=== PATIENT | male | born 1945 | race Caucasian/White ===

== ENCOUNTER 2023-04-24 08:11 | Emergency (ER) | payer OTHER ==
[~2023-04-24] VITALS: Ht 177.8 cm; Wt 77.2 kg
[2023-04-24 09:35] LABS: Urine Bacteria NONE SEEN /hpf (None Seen); Urine Blood 1+ /uL (Negative); Urine Clarity HAZY (Clear); Urine Color Yellow (Yellow); Urine Protein, UAD 1+ (Negative); Urine Specific Gravity 1.018 (1.001-1.035); Urine Urobilinogen Normal (Negative); Urine WBC 5 /hpf (0 - 3); Urine pH 5.5 (5.0-8.0)
[2023-04-24 09:42] VITALS: BP 144/70; PULSE 74; RESP 18; TEMP 98.2; O2SAT 96
[2023-04-24] MEDS ORDERED: NITR-87 PO (09:45)
[2023-04-24] MEDS ORDERED: TAMS-35 PO (09:45)
== END 2023-04-24 10:56 | disposition left against medical advice (07) ==
LOC: ER 08:11
DX: N39.0 Urinary tract infection, site not specified (principal); R33.9 Retention of urine, unspecified; J44.9 Chronic obstructive pulmonary disease, unspecified
CPT/HCPCS: 51702; 81001

== ENCOUNTER 2023-07-10 14:56 | Inpatient (IN) | payer OTHER ==
[~2023-07-10] VITALS: Ht 179.1 cm; Wt 77.7 kg
[~2023-07-10 14:56] MED LIST: NITR-87 PO; TAMS-35 PO
[2023-07-10 15:47] LABS: Basophils # (auto) 0.1 10 ^3/uL (0-0.2); Basophils % (auto) 0.8 % (0.0-2.0); Eosinophils # (auto) 0.1 10 ^3/uL (0-0.8); Hematocrit 36.7 % (41.0-53.0); Hemoglobin 11.8 g/dL (13.5-17.5); Lymphocytes # (auto) 0.8 10 ^3/uL (0.4-5.4); Lymphocytes % (auto) 12.5 % (10.0-50.0); Mean Corpuscular Hemoglobin 29.5 pg (28.0-32.0); Mean Corpuscular Hgb Conc. 32.1 g/dL (32.0-36.0); Mean Corpuscular Volume 92.1 fL (80.0-100.0); Monocytes # (auto) 0.5 10 ^3/uL (0-1.3); Monocytes % (auto) 8.7 % (0.0-12.0); Neutrophils # (auto) 4.7 10 ^3/uL (1.6-8.6); Red Blood Cells 3.98 10^6/uL (4.5-5.90); Red Cell Distribution Width 15.5 % (11.8-14.3); White Blood Cell 6.2 10^3/uL (4.4-10.8)
[2023-07-10 16:07] LABS: Alanine Aminotransferase 20 U/L (7-40); Albumin 4.1 g/dL (3.2-4.8); Alkaline Phosphatase 76 U/L (46-116); Anion Gap 7 (5-15); Aspartate Aminotransferase 24 U/L (13-40); BUN/Creatinine Ratio 14.9 (10.0-20.0); Bilirubin, Total 0.9 mg/dL (0.2-1.0); Blood Urea Nitrogen 18 mg/dL (9-23); Calcium 9.5 mg/dL (8.5-10.1); Carbon Dioxide 32 mmol/L (20-30); Chloride 107 mmol/L (98-107); Glucose 92 mg/dL (74-106); Potassium 3.6 mmol/L (3.5-5.1); Sodium 146 mmol/L (136-145); Total Protein 6.7 g/dL (5.7-8.2)
[2023-07-10] MEDS ORDERED: MORPHINE SULFATE INJ 2 MG/ml SYRG IV PRN ×2 (17:15)
[2023-07-10] MEDS ORDERED: ONDANSETRON HCL 4 MG/2 ML VIAL IV PRN (17:15)
[2023-07-10] MEDS ORDERED: ACETAMINOPHEN 325 MG TAB PO PRN (17:15)
[2023-07-10] MEDS ORDERED: NITROGLYCERIN 0.4 MG SL TAB SL PRN (17:15)
[2023-07-10 18:26] VITALS: PULSE 93; RESP 17; O2SAT 99
[2023-07-10] MEDS: ALBUTEROL SULF 2.5 MG/0.5ML(0.5%) NEB SOLN NEB SCH (18:26)
[2023-07-10] MEDS: IPRATROPIUM BROM 0.5 MG/2.5ML INH SOL NEB SCH (18:26)
[2023-07-10 18:27] LABS: Urine WBC None Seen /hpf (0 - 3)
[2023-07-10 18:35] VITALS: PULSE 81; RESP 16; O2SAT 98
[2023-07-10 18:37] VITALS: PULSE 86; RESP 18; O2SAT 100
[2023-07-10] MEDS: FUROSEMIDE 40 MG/4 ML VIAL IV SCH (18:38)
[2023-07-10 18:48] LABS: Urine Bacteria NONE SEEN /hpf (None Seen); Urine Blood Negative /uL (Negative); Urine Clarity Clear (Clear); Urine Color Yellow (Yellow); Urine Mucus FEW (None Seen); Urine Protein, UAD TRACE (Negative); Urine Specific Gravity 1.021 (1.001-1.035); Urine Urobilinogen Normal (Negative)
[2023-07-10 19:18] VITALS: BP 154/85; PULSE 86; RESP 18; TEMP 97.4; O2SAT 100
[2023-07-10 21:28] VITALS: PULSE 80; RESP 20; O2SAT 96
[2023-07-10 21:38] VITALS: PULSE 77; RESP 21; O2SAT 94
[2023-07-10] MEDS: CARVEDILOL 3.125 MG TAB PO SCH (23:09)
[2023-07-11] VITALS (17 sets, daily range): BP systolic 115–152; BP diastolic 64–70; PULSE 63–83; RESP 16–19; TEMP 98.2–98.4; O2SAT 93–99
[2023-07-11] MEDS: hydrALAZINE HCL 20 MG/ML VL IV PRN (08:16)
[2023-07-11] MEDS: LISINOPRIL 5 MG TAB PO SCH (11:02)
[2023-07-11] MEDS: ENOXAPARIN SOD 40 MG/0.4 ML SYRINGE SC SCH (11:02)
[2023-07-11 11:42] LABS: INR 1.21 (0.9-1.15); Partial Thromboplastin Time 30.5 SEC (24.5-34.5); Prothrombin Time 12.5 sec (9.3-11.8)
[2023-07-11 13:26] LABS: COVID19 ANTIGEN SOFIA FIA NEGATIVE (NEGATIVE)
[2023-07-12] VITALS (17 sets, daily range): BP systolic 128–161; BP diastolic 67–76; PULSE 52–112; RESP 16–20; TEMP 97.8–98.2; O2SAT 92–100
[2023-07-12] MEDS: EMPAGLIFLOZIN 10 MG TAB PO SCH (08:46)
[2023-07-12] MEDS ORDERED: TAMS-35 PO (17:44)
[2023-07-12] MEDS: LACTULOSE 20Gm/30ML SOLN PO PRN (17:50)
[2023-07-12] MEDS ORDERED: LACTULOSE 20Gm/30ML SOLN PO SCH (18:00)
[2023-07-12] MEDS: TAMSULOSIN HYDROCHLORIDE 0.4 MG CAP PO SCH (18:03)
[2023-07-12 18:50] LABS: Urine Bacteria NONE SEEN /hpf (None Seen); Urine Blood Negative /uL (Negative); Urine Clarity Clear (Clear); Urine Color Colorless (Yellow); Urine Protein, UAD Negative (Negative); Urine Specific Gravity 1.012 (1.001-1.035); Urine Urobilinogen Normal (Negative); Urine WBC 1 /hpf (0 - 3)
[2023-07-12] MEDS ORDERED: LEVO50TA7 PO (18:50)
[2023-07-12] MEDS ORDERED: CARV6.2551 PO (18:50)
[2023-07-12] MEDS ORDERED: TERA5CAP42 PO (18:50)
[2023-07-12] MEDS ORDERED: GABA-339 PO (18:50)
[2023-07-12] MEDS ORDERED: LISI10TA34 PO (18:50)
[2023-07-12] MEDS: HYDROcodone-ACET 5/325MG TAB PO PRN (20:25)
[2023-07-12] MEDS: SACUBITRIL-VALSARTAN 24mg/26mg TAB PO SCH (22:36)
[2023-07-12] MEDS: TERAZOSIN HCL 5 MG CAP ONE (22:41)
[2023-07-12] MEDS: TERAZOSIN HCL 5 MG CAP PO ONE (22:42)
[2023-07-13] VITALS (19 sets, daily range): BP systolic 100–132; BP diastolic 56–80; PULSE 65–84; RESP 14–18; TEMP 36.7; O2SAT 92–100
[2023-07-13] MEDS: IPRATROPIUM BROM 0.5 MG/2.5ML INH SOL NEB SCH (06:25)
[2023-07-13] MEDS: ALBUTEROL SULF 2.5 MG/0.5ML(0.5%) NEB SOLN NEB SCH (06:26)
[2023-07-13 06:42] LABS: Anion Gap 9 (5-15); Calcium 8.9 mg/dL (8.7-10.4); Carbon Dioxide 31 mmol/L (20-30); Chloride 101 mmol/L (98-107); Potassium 3.1 mmol/L (3.5-5.1); Sodium 141 mmol/L (136-145)
[2023-07-13 06:48] LABS: BUN/Creatinine Ratio 13.6 (10.0-20.0); Blood Urea Nitrogen 20 mg/dL (9-23); Glucose 91 mg/dL (74-106)
[2023-07-13] MEDS: MAGNESIUM SULFATE 1GM/100ML 100 ML IV SCH (11:00)
[2023-07-13 15:29] LABS: Body Fluid Polymorphonuclear 2 % (0-25); Body Fluid Red Blood Cells 400 CUMM (0-2000); Body Fluid White Blood Cells 400 CUMM (0-200)
[2023-07-13] MEDS ORDERED: FURO1TAB31 PO (15:34)
[2023-07-13] MEDS ORDERED: SACU1TAB PO (15:34)
[2023-07-13] MEDS ORDERED: EMPA1TAB PO (15:34)
[2023-07-13] MEDS ORDERED: CARV6.2551 PO (15:34)
[2023-07-13] MEDS: MAGNESIUM SULFATE 1GM/100ML 100 ML IV ONE (16:13)
[2023-07-13] MEDS ORDERED: TERAZOSIN HCL 5 MG CAP PO SCH (22:00)
[2023-07-16 13:07] LABS: Protein, Body Fluid 3.5 g/dL (.)
== END 2023-07-13 19:12 | disposition home or self-care (01) | DRG 291 ==
LOC: ER 14:56 → TELE 17:14 → TELE-WESTW 07-11 09:30
PROVIDERS: ADMIT Internal Medicine; ATTEND Internal Medicine
PROC: 0W9B3ZZ Drainage of Left Pleural Cavity, Percutaneous Approach (ICD-10-PCS; principal; 2023-07-11)
PROC: BB4BZZZ Ultrasonography of Pleura (ICD-10-PCS; 2023-07-11)
PROC: BB4BZZZ Ultrasonography of Pleura (ICD-10-PCS; 2023-07-13)
PROC: 0W9B3ZZ Drainage of Left Pleural Cavity, Percutaneous Approach (ICD-10-PCS; 2023-07-13)
DX: I11.0 Hypertensive heart disease with heart failure (principal); I50.23 Acute on chronic systolic (congestive) heart failure; J96.21 Acute and chronic respiratory failure with hypoxia; J44.1 Chronic obstructive pulmonary disease with (acute) exacerbation; I31.39 Other pericardial effusion (noninflammatory); J98.11 Atelectasis; J91.8 Pleural effusion in other conditions classified elsewhere; I42.9 Cardiomyopathy, unspecified; E78.5 Hyperlipidemia, unspecified; I25.10 Atherosclerotic heart disease of native coronary artery without angina pectoris; Z20.822 Contact with and (suspected) exposure to COVID-19; Z99.81 Dependence on supplemental oxygen; Z95.810 Presence of automatic (implantable) cardiac defibrillator; Z87.891 Personal history of nicotine dependence; Z98.61 Coronary angioplasty status; Z79.899 Other long term (current) drug therapy
CPT/HCPCS: 36415; 71045; 74176; 76604; 80048; 80053; 81001; 83735; 83880; 83986; 84484; 85025; 85610; 85730; 87205; 87426; 89051; 93005; 93306; 94640; 97116; 97163; 97530; 99291; G0378

== ENCOUNTER 2023-07-18 15:12 | Inpatient (IN) | payer OTHER ==
[~2023-07-18] VITALS: Ht 170.2 cm; Wt 74.8 kg
[~2023-07-18 15:12] MED LIST changes: +CARV6.2551 PO; +EMPA1TAB PO; +FURO1TAB31 PO; +LEVO50TA7 PO; -NITR-87 PO; +SACU1TAB PO; +TERA5CAP42 PO
[2023-07-18 17:55] LABS: Basophils # (auto) 0 10 ^3/uL (0-0.2); Basophils % (auto) 0.6 % (0.0-2.0); Eosinophils # (auto) 0.2 10 ^3/uL (0-0.8); Eosinophils % (auto) 2.4 % (0.0-7.0); Hematocrit 39.9 % (41.0-53.0); Lymphocytes # (auto) 0.7 10 ^3/uL (0.4-5.4); Lymphocytes % (auto) 9.6 % (10.0-50.0); Mean Corpuscular Hemoglobin 29.7 pg (28.0-32.0); Mean Corpuscular Hgb Conc. 32.5 g/dL (32.0-36.0); Mean Corpuscular Volume 91.4 fL (80.0-100.0); Monocytes # (auto) 0.7 10 ^3/uL (0-1.3); Monocytes % (auto) 8.5 % (0.0-12.0); Neutrophils # (auto) 6.1 10 ^3/uL (1.6-8.6); Neutrophils % (auto) 78.9 % (37.0-80.0); Nucleated Red Blood Cells % 0.1 %; Red Blood Cells 4.37 10^6/uL (4.5-5.90); Red Cell Distribution Width 14.8 % (11.8-14.3); White Blood Cell 7.8 10^3/uL (4.4-10.8)
[2023-07-18 18:02] LABS: Alanine Aminotransferase 16 U/L (7-40); Albumin 3.9 g/dL (3.2-4.8); Alkaline Phosphatase 74 U/L (46-116); Anion Gap 4 (5-15); BUN/Creatinine Ratio 17.4 (10.0-20.0); Bilirubin, Total 0.4 mg/dL (0.2-1.0); Blood Urea Nitrogen 32 mg/dL (9-23); Calcium 8.8 mg/dL (8.7-10.4); Carbon Dioxide 35 mmol/L (20-30); Chloride 104 mmol/L (98-107); Glucose 106 mg/dL (74-106); Lipase 51 U/L (12-53); Potassium 3.9 mmol/L (3.5-5.1); Sodium 143 mmol/L (136-145); Total Protein 6.6 g/dL (5.7-8.2)
[2023-07-18 18:17] LABS: Aspartate Aminotransferase 10 U/L (13-40)
[2023-07-18] MEDS ORDERED: ACETAMINOPHEN 325 MG TAB PO PRN (23:00)
[2023-07-18] MEDS ORDERED: ONDANSETRON HCL 4 MG/2 ML VIAL IV PRN (23:00)
[2023-07-19] VITALS (11 sets, daily range): BP systolic 91–150; BP diastolic 55–70; PULSE 65–85; RESP 16–20; TEMP 97.5–98.5; O2SAT 94–97
[2023-07-19] MEDS: SODIUM CHLORIDE 0.9% 1,000 ML IV ONE (02:20)
[2023-07-19] MEDS: ENOXAPARIN SOD 100 MG/1 ML SYRINGE SC ONE (02:25)
[2023-07-19 04:37] LABS: Basophils # (auto) 0.1 10 ^3/uL (0-0.2); Basophils % (auto) 0.8 % (0.0-2.0); Eosinophils # (auto) 0.2 10 ^3/uL (0-0.8); Eosinophils % (auto) 2.9 % (0.0-7.0); Hematocrit 39.2 % (41.0-53.0); Hemoglobin 12.6 g/dL (13.5-17.5); Lymphocytes # (auto) 1.1 10 ^3/uL (0.4-5.4); Lymphocytes % (auto) 15.2 % (10.0-50.0); Mean Corpuscular Hemoglobin 29.5 pg (28.0-32.0); Mean Corpuscular Hgb Conc. 32.2 g/dL (32.0-36.0); Mean Corpuscular Volume 91.7 fL (80.0-100.0); Monocytes # (auto) 0.6 10 ^3/uL (0-1.3); Monocytes % (auto) 8.6 % (0.0-12.0); Neutrophils # (auto) 5.2 10 ^3/uL (1.6-8.6); Neutrophils % (auto) 72.5 % (37.0-80.0); Red Blood Cells 4.27 10^6/uL (4.5-5.90); Red Cell Distribution Width 14.8 % (11.8-14.3); White Blood Cell 7.2 10^3/uL (4.4-10.8)
[2023-07-19 04:46] LABS: Chloride 105 mmol/L (98-107); Potassium 3.8 mmol/L (3.5-5.1); Sodium 143 mmol/L (136-145)
[2023-07-19 04:47] LABS: Anion Gap 7 (5-15); Carbon Dioxide 31 mmol/L (20-30)
[2023-07-19 04:52] LABS: BUN/Creatinine Ratio 15.8 (10.0-20.0); Blood Urea Nitrogen 25 mg/dL (9-23); Glucose 103 mg/dL (74-106)
[2023-07-19] MEDS ORDERED: COLCPOW2 PO (05:43)
[2023-07-19] MEDS: PANTOPRAZOLE 40 MG/10 ML VIAL INJ IV SCH (10:00)
[2023-07-19] MEDS: TERAZOSIN HCL 5 MG CAP PO ONE (13:53)
[2023-07-19] MEDS: TAMSULOSIN HYDROCHLORIDE 0.4 MG CAP PO ONE (13:53)
[2023-07-19] MEDS: SACUBITRIL-VALSARTAN 24mg/26mg TAB PO SCH (18:00)
[2023-07-19] MEDS: FUROSEMIDE 40 MG TAB PO SCH (18:00)
[2023-07-19 18:55] LABS: Urine Bacteria NONE SEEN /hpf (None Seen); Urine Blood Negative /uL (Negative); Urine Clarity Clear (Clear); Urine Color Colorless (Yellow); Urine Protein, UAD Negative (Negative); Urine Specific Gravity 1.015 (1.001-1.035); Urine Urobilinogen Normal (Negative); Urine WBC 1 /hpf (0 - 3); Urine pH 7.5 (5.0-8.0)
[2023-07-19] MEDS: COLCHICINE 0.6 MG CAP PO SCH (22:00)
[2023-07-19] MEDS: CARVEDILOL 3.125 MG TAB PO SCH (22:00)
[2023-07-20] VITALS (7 sets, daily range): BP systolic 99–135; BP diastolic 60–80; PULSE 65–87; RESP 16–22; TEMP 97.8–98.4; O2SAT 93–96
[2023-07-20 00:56] LABS: Potassium 3.7 mmol/L (3.5-5.1)
[2023-07-20] MEDS: LEVOTHYROXINE SODIUM 50 MCG TAB PO SCH (06:12)
[2023-07-20 06:55] LABS: Basophils # (auto) 0.1 10 ^3/uL (0-0.2); Eosinophils # (auto) 0.2 10 ^3/uL (0-0.8); Eosinophils % (auto) 3.7 % (0.0-7.0); Hematocrit 36.9 % (41.0-53.0); Hemoglobin 11.9 g/dL (13.5-17.5); Lymphocytes # (auto) 1.1 10 ^3/uL (0.4-5.4); Lymphocytes % (auto) 16.8 % (10.0-50.0); Mean Corpuscular Hemoglobin 29.4 pg (28.0-32.0); Mean Corpuscular Hgb Conc. 32.3 g/dL (32.0-36.0); Mean Corpuscular Volume 91.1 fL (80.0-100.0); Monocytes # (auto) 0.6 10 ^3/uL (0-1.3); Monocytes % (auto) 8.9 % (0.0-12.0); Neutrophils # (auto) 4.7 10 ^3/uL (1.6-8.6); Neutrophils % (auto) 69.6 % (37.0-80.0); Red Blood Cells 4.06 10^6/uL (4.5-5.90); Red Cell Distribution Width 14.4 % (11.8-14.3); White Blood Cell 6.8 10^3/uL (4.4-10.8)
[2023-07-20 07:06] LABS: Anion Gap 8 (5-15); Carbon Dioxide 29 mmol/L (20-30); Chloride 106 mmol/L (98-107); Potassium 3.6 mmol/L (3.5-5.1); Sodium 143 mmol/L (136-145)
[2023-07-20 07:07] LABS: Calcium 8.9 mg/dL (8.5-10.1)
[2023-07-20 07:12] LABS: BUN/Creatinine Ratio 15.9 (10.0-20.0); Blood Urea Nitrogen 22 mg/dL (9-23); Glucose 92 mg/dL (74-106)
[2023-07-20] MEDS: EMPAGLIFLOZIN 10 MG TAB PO SCH (08:18)
[2023-07-20] MEDS: TERAZOSIN HCL 5 MG CAP PO SCH (09:41)
[2023-07-20] MEDS ORDERED: TAMSULOSIN HYDROCHLORIDE 0.4 MG CAP PO SCH (18:00)
[2023-07-20] MEDS: DOCUSATE SOD 100 MG CAP PO SCH (22:12)
[2023-07-21] VITALS (7 sets, daily range): BP systolic 100–132; BP diastolic 47–94; PULSE 62–80; RESP 16–18; TEMP 36.9; O2SAT 92–96
[2023-07-21 06:54] LABS: Basophils # (auto) 0.1 10 ^3/uL (0-0.2); Eosinophils # (auto) 0.2 10 ^3/uL (0-0.8); Eosinophils % (auto) 3.1 % (0.0-7.0); Hematocrit 36.8 % (41.0-53.0); Hemoglobin 12.2 g/dL (13.5-17.5); Lymphocytes # (auto) 1.2 10 ^3/uL (0.4-5.4); Lymphocytes % (auto) 17.2 % (10.0-50.0); Mean Corpuscular Hgb Conc. 33.1 g/dL (32.0-36.0); Mean Corpuscular Volume 90.8 fL (80.0-100.0); Monocytes # (auto) 0.7 10 ^3/uL (0-1.3); Neutrophils # (auto) 4.6 10 ^3/uL (1.6-8.6); Neutrophils % (auto) 68.7 % (37.0-80.0); Red Blood Cells 4.05 10^6/uL (4.5-5.90); Red Cell Distribution Width 14.4 % (11.8-14.3); White Blood Cell 6.8 10^3/uL (4.4-10.8)
[2023-07-21 07:25] LABS: Chloride 106 mmol/L (98-107); Potassium 3.9 mmol/L (3.5-5.1); Sodium 143 mmol/L (136-145)
[2023-07-21 07:27] LABS: Calcium 8.9 mg/dL (8.5-10.1)
[2023-07-21 07:31] LABS: BUN/Creatinine Ratio 14.4 (10.0-20.0); Blood Urea Nitrogen 22 mg/dL (9-23); Glucose 95 mg/dL (74-106)
[2023-07-21 08:06] LABS: Anion Gap 9 (5-15); Carbon Dioxide 28 mmol/L (20-30)
[2023-07-21] MEDS: TAMSULOSIN HYDROCHLORIDE 0.4 MG CAP PO SCH (09:41)
[2023-07-21] MEDS: FUROSEMIDE 40 MG TAB PO SCH (09:42)
[2023-07-21] MEDS: SACUBITRIL-VALSARTAN 24mg/26mg TAB PO SCH (09:42)
[2023-07-21] MEDS: TERAZOSIN HCL 5 MG CAP PO SCH (10:14)
== END 2023-07-21 17:25 | disposition home or self-care (01) | DRG 917 ==
LOC: EDBD 15:12 → ER 15:12 → OVERFLOW 22:57 → TELE-CENTR 07-19 05:10
PROVIDERS: ADMIT Nurse Practitioner Family; ATTEND Internal Medicine
DX: T44.6X1A Poisoning by alpha-adrenoreceptor antagonists, accidental (unintentional), initial encounter (principal); N17.0 Acute kidney failure with tubular necrosis; J98.11 Atelectasis; I13.0 Hypertensive heart and chronic kidney disease with heart failure and stage 1 through stage 4 chronic kidney disease, or unspecified chronic kidney disease; I50.9 Heart failure, unspecified; E07.9 Disorder of thyroid, unspecified; E03.9 Hypothyroidism, unspecified; J44.9 Chronic obstructive pulmonary disease, unspecified; I95.2 Hypotension due to drugs; C43.9 Malignant melanoma of skin, unspecified; F10.20 Alcohol dependence, uncomplicated; Y90.9 Presence of alcohol in blood, level not specified; N18.9 Chronic kidney disease, unspecified; Z79.899 Other long term (current) drug therapy; Z79.84 Long term (current) use of oral hypoglycemic drugs; Z87.891 Personal history of nicotine dependence; Z85.820 Personal history of malignant melanoma of skin; Z80.8 Family history of malignant neoplasm of other organs or systems; Y92.89 Other specified places as the place of occurrence of the external cause
CPT/HCPCS: 36415; 70450; 71045; 76775; 78582; 80048; 80053; 81001; 83605; 83690; 83735; 83880; 84132; 84484; 85025; 85379; 87081; 93005; 93970; 97110; 97116; 97163; 97530; C9113; G0378

== ENCOUNTER 2023-10-18 14:03 | Inpatient (IN) | payer OTHER ==
[~2023-10-18] VITALS: Ht 177.8 cm; Wt 78.0 kg
[~2023-10-18 14:03] MED LIST changes: +COLCPOW2 PO
[2023-10-18 15:15] VITALS: PULSE 60; RESP 16; O2SAT 96
[2023-10-18 15:59] LABS: Basophils # (auto) 0.1 10 ^3/uL (0-0.2); Eosinophils # (auto) 0.1 10 ^3/uL (0-0.8); Eosinophils % (auto) 2.2 % (0.0-7.0); Hematocrit 34.7 % (41.0-53.0); Hemoglobin 11.4 g/dL (13.5-17.5); Lymphocytes # (auto) 0.9 10 ^3/uL (0.4-5.4); Mean Corpuscular Hemoglobin 29.4 pg (28.0-32.0); Mean Corpuscular Hgb Conc. 32.9 g/dL (32.0-36.0); Mean Corpuscular Volume 89.3 fL (80.0-100.0); Monocytes # (auto) 0.4 10 ^3/uL (0-1.3); Monocytes % (auto) 7.7 % (0.0-12.0); Neutrophils # (auto) 3.8 10 ^3/uL (1.6-8.6); Neutrophils % (auto) 72.1 % (37.0-80.0); Red Blood Cells 3.89 10^6/uL (4.5-5.90); Red Cell Distribution Width 15.9 % (11.8-14.3); White Blood Cell 5.3 10^3/uL (4.4-10.8)
[2023-10-18 16:09] LABS: Albumin 3.6 g/dL (3.2-4.8); Alkaline Phosphatase 67 U/L (46-116); Anion Gap 3 (5-15); Aspartate Aminotransferase < 8 U/L (13-40); BUN/Creatinine Ratio 16.5 (10.0-20.0); Blood Urea Nitrogen 34 mg/dL (9-23); Carbon Dioxide 31 mmol/L (20-30); Chloride 109 mmol/L (98-107); Glucose 99 mg/dL (74-106); Lipase 40 U/L (12-53); Potassium 4.1 mmol/L (3.5-5.1); Sodium 143 mmol/L (136-145)
[2023-10-18 16:10] LABS: Bilirubin, Total 0.4 mg/dL (0.2-1.0); Total Protein 6.4 g/dL (5.7-8.2)
[2023-10-18 16:11] LABS: Alanine Aminotransferase < 9 U/L (7-40)
[2023-10-18] MEDS ORDERED: ONDANSETRON HCL 4 MG/2 ML VIAL IV PRN (19:00)
[2023-10-18] MEDS ORDERED: MORPHINE SULFATE INJ 2 MG/ml SYRG IV PRN (19:00)
[2023-10-18] MEDS ORDERED: NITROGLYCERIN 0.4 MG SL TAB SL PRN (19:00)
[2023-10-18] MEDS: SODIUM CHLORIDE 0.9% 250 ML IV ONE (19:00)
[2023-10-18 19:10] LABS: Urine Bacteria None Seen /hpf (None Seen)
[2023-10-18 19:37] LABS: Urine Blood Negative /uL (Negative); Urine Clarity Clear (Clear); Urine Color Light-Yellow (Yellow); Urine Protein, UAD Negative (Negative); Urine Specific Gravity 1.012 (1.001-1.035); Urine Urobilinogen Normal (Negative); Urine WBC 1 /hpf (0 - 3)
[2023-10-18 19:45] VITALS: PULSE 65; RESP 14; O2SAT 98
[2023-10-18] MEDS: FAMOTIDINE 20 MG TAB PO SCH (22:00)
[2023-10-18] MEDS: CARVEDILOL 3.125 MG TAB PO SCH (22:47)
[2023-10-18 22:55] VITALS: PULSE 90; RESP 17; O2SAT 97
[2023-10-19] VITALS (9 sets, daily range): BP systolic 106–159; BP diastolic 40–106; PULSE 54–75; RESP 14–20; TEMP 97.3–98.3; O2SAT 64–97
[2023-10-19 06:49] LABS: Calcium 9.3 mg/dL (8.5-10.1); Chloride 110 mmol/L (98-107); Potassium 3.8 mmol/L (3.5-5.1); Sodium 145 mmol/L (136-145)
[2023-10-19 06:50] LABS: Anion Gap 4 (5-15); Carbon Dioxide 31 mmol/L (20-30)
[2023-10-19] MEDS: LEVOTHYROXINE SODIUM 50 MCG TAB PO SCH (06:53)
[2023-10-19 06:55] LABS: BUN/Creatinine Ratio 15.3 (10.0-20.0); Blood Urea Nitrogen 28 mg/dL (9-23); Glucose 85 mg/dL (74-106)
[2023-10-19 06:56] LABS: Magnesium 2.3 mg/dL (1.6-2.6)
[2023-10-19 08:39] LABS: Triglycerides 126 mg/dL (< 150)
[2023-10-19 08:40] LABS: LDL Cholesterol 149 mg/dL (< 100)
[2023-10-19 08:41] LABS: Cholesterol 209 mg/dL (< 200); HDL Cholesterol 45 mg/dL (40-59)
[2023-10-19] MEDS: EMPAGLIFLOZIN 10 MG TAB PO SCH (18:35)
[2023-10-19] MEDS: TAMSULOSIN HYDROCHLORIDE 0.4 MG CAP PO SCH (18:35)
[2023-10-19] MEDS: ATORVASTATIN 20 MG TAB PO SCH (22:00)
[2023-10-20] MEDS: MELATONIN 5 MG TAB PO PRN (00:43)
[2023-10-20] MEDS: ACETAMINOPHEN 325 MG TAB PO PRN (00:44)
[2023-10-20 01:00] VITALS: BP 137/64; PULSE 62; RESP 20; TEMP 98.3; O2SAT 95
[2023-10-20 05:00] VITALS: BP 160/70; PULSE 60; RESP 21; TEMP 97.8; O2SAT 97
[2023-10-20] MEDS ORDERED: hydrALAZINE HCL 20 MG/ML VL IV PRN (07:15)
[2023-10-20 08:00] VITALS: BP 161/73; PULSE 60; PULSE 76; RESP 20; TEMP 97.7; O2SAT 97
[2023-10-20] MEDS: FAMOTIDINE 20 MG TAB PO SCH (09:39)
[2023-10-20 12:59] VITALS: BP 138/69; PULSE 64; RESP 20; TEMP 97.7; O2SAT 96
[2023-10-20 15:39] VITALS: BP 138/69; PULSE 64; RESP 18; TEMP 36.5; O2SAT 98
[2023-10-20 15:50] VITALS: BP 138/69; PULSE 64
== END 2023-10-20 16:30 | disposition home or self-care (01) | DRG 312 ==
LOC: ER 14:03 → EDUNIT# 14:03 → EDBD 14:03 → TELE 18:56 → TELE-CENTR 22:18
PROVIDERS: ADMIT Hospitalist; ATTEND Hospitalist
DX: I95.2 Hypotension due to drugs (principal); G93.41 Metabolic encephalopathy; I13.0 Hypertensive heart and chronic kidney disease with heart failure and stage 1 through stage 4 chronic kidney disease, or unspecified chronic kidney disease; N17.9 Acute kidney failure, unspecified; I50.42 Chronic combined systolic (congestive) and diastolic (congestive) heart failure; R55 Syncope and collapse; N18.9 Chronic kidney disease, unspecified; E78.5 Hyperlipidemia, unspecified; N40.0 Benign prostatic hyperplasia without lower urinary tract symptoms; J44.9 Chronic obstructive pulmonary disease, unspecified; I25.10 Atherosclerotic heart disease of native coronary artery without angina pectoris; G62.9 Polyneuropathy, unspecified; Z95.810 Presence of automatic (implantable) cardiac defibrillator; Z95.5 Presence of coronary angioplasty implant and graft; Z80.8 Family history of malignant neoplasm of other organs or systems; T44.6X5A Adverse effect of alpha-adrenoreceptor antagonists, initial encounter; Y92.89 Other specified places as the place of occurrence of the external cause
CPT/HCPCS: 36415; 70450; 71045; 80048; 80053; 80061; 81001; 83036; 83605; 83690; 83735; 83880; 84443; 84484; 85025; 93005; 93306; 93886; 97163; G0378

== ENCOUNTER 2024-03-21 08:57 | Inpatient (IN) | payer OTHER ==
[~2024-03-21] VITALS: Ht 182.9 cm; Wt 77.2 kg
[~2024-03-21 08:57] MED LIST changes: -COLCPOW2 PO; -TERA5CAP42 PO
[2024-03-21 10:00] VITALS: PULSE 65; RESP 16; O2SAT 96
[2024-03-21] MEDS: ASPirin 325 MG TAB PO ONE (10:07)
[2024-03-21] MEDS: ASPirin 325 MG TAB ONE (10:07)
[2024-03-21 10:10] LABS: Alanine Aminotransferase 14 U/L (7-40); Albumin 4.1 g/dL (3.2-4.8); Alkaline Phosphatase 78 U/L (46-116); Anion Gap 6 (5-15); Aspartate Aminotransferase 15 U/L (13-40); Bilirubin, Total 0.5 mg/dL (0.2-1.0); Blood Urea Nitrogen 24 mg/dL (9-23); Calcium 9.4 mg/dL (8.7-10.4); Carbon Dioxide 30 mmol/L (20-31); Chloride 106 mmol/L (98-107); Glucose 94 mg/dL (74-106); Potassium 3.7 mmol/L (3.5-5.1); Sodium 142 mmol/L (136-145)
[2024-03-21 10:20] LABS: Basophils # (auto) 0 10 ^3/uL (0-0.2); Basophils % (auto) 0.9 % (0.0-2.0); Eosinophils # (auto) 0.1 10 ^3/uL (0-0.8); Eosinophils % (auto) 2.4 % (0.0-7.0); Hematocrit 39.1 % (41.0-53.0); Hemoglobin 13.4 g/dL (13.5-17.5); Lymphocytes % (auto) 18.9 % (10.0-50.0); Mean Corpuscular Hemoglobin 31.1 pg (28.0-32.0); Mean Corpuscular Hgb Conc. 34.3 g/dL (32.0-36.0); Mean Corpuscular Volume 90.8 fL (80.0-100.0); Monocytes # (auto) 0.6 10 ^3/uL (0-1.3); Monocytes % (auto) 10.6 % (0.0-12.0); Neutrophils # (auto) 3.6 10 ^3/uL (1.6-8.6); Neutrophils % (auto) 67.2 % (37.0-80.0); Nucleated Red Blood Cells % 0.2 %; Platelet Count (auto) 197 10^3/uL (140-450); Red Blood Cells 4.31 10^6/uL (4.5-5.90); Red Cell Distribution Width 15.1 % (11.8-14.3); White Blood Cell 5.3 10^3/uL (4.4-10.8)
[2024-03-21 10:59] LABS: Urine Bacteria None Seen /hpf (None Seen)
[2024-03-21 11:05] LABS: Urine Blood Negative /uL (Negative); Urine Clarity Clear (Clear); Urine Color Colorless (Yellow); Urine Protein, UAD Negative (Negative); Urine Specific Gravity 1.006 (1.001-1.035); Urine Urobilinogen Normal (Negative); Urine WBC <1 /hpf (0 - 3); Urine pH 6.5 (5.0-9.0)
[2024-03-21] MEDS ORDERED: NITROGLYCERIN 0.4 MG SL TAB SL PRN (14:00)
[2024-03-21] MEDS: ENOXAPARIN SOD 80 MG/0.8ML SYRINGE SC ONE (14:05)
[2024-03-21 15:22] LABS: INR 1.11 (0.9-1.15); Partial Thromboplastin Time 34.3 SEC (24.5-34.5); Prothrombin Time 11.7 sec (9.3-11.8)
[2024-03-21] MEDS: SACUBITRIL-VALSARTAN 24mg/26mg TAB PO SCH (18:00)
[2024-03-21] MEDS: TAMSULOSIN HYDROCHLORIDE 0.4 MG CAP PO SCH (19:00)
[2024-03-21 19:30] VITALS: PULSE 63; RESP 17; O2SAT 96
[2024-03-21] MEDS: AMIODARONE BOLUS KIT 100 ML IV ONE (19:49)
[2024-03-21] MEDS: AMIODARONE 450mg/250ml AE 250 ML IV ONE (19:50)
[2024-03-21] MEDS: AMIODARONE 450mg/250ml AE 250 ML IV SCH (20:00)
[2024-03-21] MEDS: ENOXAPARIN SOD 100 MG/1 ML SYRINGE SC ONE (20:34)
[2024-03-21] MEDS ORDERED: LIDOCAINE 50MG/5ML INJ 5ML SYRINGE IV ONE (21:00)
[2024-03-21] MEDS: LIDOCAINE HCL 100 MG/5ML (2%) SYRG INJ IV ONE (21:12)
[2024-03-21] MEDS: FUROSEMIDE 40 MG TAB PO SCH (22:00)
[2024-03-21] MEDS: AMIODARONE HCL 200 MG TAB PO SCH (22:00)
[2024-03-21] MEDS: CARVEDILOL 3.125 MG TAB PO SCH (22:00)
[2024-03-21 22:19] LABS: COVID19 ANTIGEN SOFIA FIA NEGATIVE (NEGATIVE)
[2024-03-21 22:20] LABS: Rapid Influenza A Negative (Negative); Rapid Influenza B Negative (Negative)
[2024-03-22] VITALS (35 sets, daily range): BP systolic 119–161; BP diastolic 55–90; PULSE 60–72; RESP 9–18; TEMP 97.6–98.9; O2SAT 90–100
[2024-03-22] MEDS: AMIODARONE 450mg/250ml AE 250 ML IV SCH (02:00)
[2024-03-22] MEDS: LEVOTHYROXINE SODIUM 50 MCG TAB PO SCH (07:00)
[2024-03-22 07:38] LABS: Urine Bacteria None Seen /hpf (None Seen)
[2024-03-22 07:52] LABS: Urine Blood Negative /uL (Negative); Urine Clarity Clear (Clear); Urine Color Light-Yellow (Yellow); Urine Hyaline Cast FEW /lpf (0 - 2); Urine Protein, UAD Negative (Negative); Urine Specific Gravity 1.015 (1.001-1.035); Urine Urobilinogen Normal (Negative); Urine WBC 1 /hpf (0 - 3)
[2024-03-22 08:00] LABS: Amphetamine Screen, Urine Neg (NEGATIVE); Benzodiazephine Screen, Urine Neg (NEGATIVE)
[2024-03-22 08:01] LABS: Barbiturate Scree,Urine Neg (NEGATIVE); Cannabinoid Screen, Urine Neg (NEGATIVE); Cocaine Screen, Urine Neg (NEGATIVE); Opiate Scree,Urine Neg (NEGATIVE); Phencyclidine Screen, Urine Neg (NEGATIVE)
[2024-03-22] MEDS: EMPAGLIFLOZIN 10 MG TAB PO SCH (08:42)
[2024-03-22 08:48] LABS: Basophils # (auto) 0 10 ^3/uL (0-0.2); Basophils % (auto) 0.7 % (0.0-2.0); Eosinophils # (auto) 0.1 10 ^3/uL (0-0.8); Eosinophils % (auto) 1.7 % (0.0-7.0); Hematocrit 38.9 % (41.0-53.0); Hemoglobin 13.2 g/dL (13.5-17.5); Lymphocytes # (auto) 0.8 10 ^3/uL (0.4-5.4); Lymphocytes % (auto) 12.8 % (10.0-50.0); Mean Corpuscular Hemoglobin 30.7 pg (28.0-32.0); Mean Corpuscular Hgb Conc. 34.1 g/dL (32.0-36.0); Mean Corpuscular Volume 90.2 fL (80.0-100.0); Monocytes # (auto) 0.6 10 ^3/uL (0-1.3); Monocytes % (auto) 9.2 % (0.0-12.0); Neutrophils # (auto) 4.6 10 ^3/uL (1.6-8.6); Neutrophils % (auto) 75.6 % (37.0-80.0); Platelet Count (auto) 189 10^3/uL (140-450); Red Blood Cells 4.31 10^6/uL (4.5-5.90); White Blood Cell 6.1 10^3/uL (4.4-10.8)
[2024-03-22 09:04] LABS: Alanine Aminotransferase 12 U/L (7-40); Albumin 3.8 g/dL (3.2-4.8); Alkaline Phosphatase 75 U/L (46-116); Anion Gap 5 (5-15); Aspartate Aminotransferase 16 U/L (13-40); BUN/Creatinine Ratio 12.8 (10.0-20.0); Blood Urea Nitrogen 24 mg/dL (9-23); Calcium 9.3 mg/dL (8.7-10.4); Carbon Dioxide 29 mmol/L (20-31); Chloride 107 mmol/L (98-107); Glucose 96 mg/dL (74-106); Potassium 3.6 mmol/L (3.5-5.1); Sodium 141 mmol/L (136-145)
[2024-03-22 09:05] LABS: Bilirubin, Total 0.7 mg/dL (0.2-1.0); INR 1.1 (0.9-1.15); Partial Thromboplastin Time 36.2 SEC (24.5-34.5); Prothrombin Time 11.6 sec (9.3-11.8); Total Protein 6.7 g/dL (5.7-8.2)
[2024-03-22] MEDS: HEPARIN IN NS 1000Units/500mL 1,500 ML ONE (09:16)
[2024-03-22] MEDS: IOHEXOL 350 MG/ML 100ML IJ ONE (09:16)
[2024-03-22] MEDS: ENOXAPARIN SOD 40 MG/0.4 ML SYRINGE SC SCH (10:16)
[2024-03-22] MEDS: MORPHINE SULFATE INJ 2 MG/ml SYRG IV PRN (10:25)
[2024-03-22] MEDS: MORPHINE SULFATE INJ 2 MG/ml SYRG ONE (10:28)
[2024-03-22] MEDS ORDERED: POTASSIUM CHL 20 Meq TABLET PO ONE (10:30)
[2024-03-22] MEDS ORDERED: MAGNESIUM SULFATE 1GM/100ML 100 ML IV ONE (10:30)
[2024-03-22 11:04] LABS: Magnesium 2.3 mg/dL (1.6-2.6)
[2024-03-22] MEDS: MAGNESIUM SULFATE 1GM/100ML 100 ML IV ONE (11:06)
[2024-03-22] MEDS: POTASSIUM CHL 20 Meq TABLET PO ONE (11:06)
[2024-03-22] MEDS: fentaNYL CITRATE 100 MCG/2 ML VL ONE (12:31)
[2024-03-22] MEDS: VERAPAMIL 2.5MG/ML INJ 2ML VIAL IV ONE (12:31)
[2024-03-22] MEDS: HEPARIN SODIUM (PORCINE) 5000 UNITS/ML 1ML VIAL ONE (12:31)
[2024-03-22] MEDS: ANGIOMAX 250 MG VIAL IV ONE (12:31)
[2024-03-22] MEDS: LIDOCAINE 2%HCL (LOCAL ANESTH.) INJ 20ML MDV ONE (12:32)
[2024-03-22] MEDS: MIDAZOLAM HCL 2MG/2ML 2ml VIAL (1mg/ml) ONE (12:32)
[2024-03-22] MEDS: SODIUM CHL 0.9% 50 ML ONE (12:32)
[2024-03-22] MEDS: ASPirin 81 mg TAB ONE (13:18)
[2024-03-22] MEDS: TICAGRELOR 90 MG TAB ONE (13:18)
[2024-03-22] MEDS: MEXILETINE HYDROCHLORIDE 150 MG CAP PO SCH (17:24)
[2024-03-22] MEDS: TICAGRELOR 90 MG TAB PO SCH (21:04)
[2024-03-22] MEDS: diphenhdrAMINE HCL 50 MG/1 ML VL IV PRN (22:20)
[2024-03-23] VITALS (54 sets, daily range): BP systolic 90–159; BP diastolic 43–87; PULSE 60–83; RESP 9–19; TEMP 97.3–98.6; O2SAT 91–100
[2024-03-23 06:39] LABS: Basophils # (auto) 0 10 ^3/uL (0-0.2); Basophils % (auto) 0.3 % (0.0-2.0); Eosinophils # (auto) 0.1 10 ^3/uL (0-0.8); Eosinophils % (auto) 1.1 % (0.0-7.0); Hematocrit 44.2 % (41.0-53.0); Hemoglobin 14.9 g/dL (13.5-17.5); Lymphocytes # (auto) 0.6 10 ^3/uL (0.4-5.4); Mean Corpuscular Hemoglobin 30.7 pg (28.0-32.0); Mean Corpuscular Hgb Conc. 33.7 g/dL (32.0-36.0); Mean Corpuscular Volume 91.2 fL (80.0-100.0); Monocytes # (auto) 0.7 10 ^3/uL (0-1.3); Monocytes % (auto) 7.2 % (0.0-12.0); Neutrophils % (auto) 85.4 % (37.0-80.0); Platelet Count (auto) 223 10^3/uL (140-450); Red Blood Cells 4.85 10^6/uL (4.5-5.90); Red Cell Distribution Width 15.5 % (11.8-14.3); White Blood Cell 9.3 10^3/uL (4.4-10.8)
[2024-03-23 06:56] LABS: Alanine Aminotransferase 11 U/L (7-40); Albumin 4.2 g/dL (3.2-4.8); Alkaline Phosphatase 84 U/L (46-116); Anion Gap 8 (5-15); Aspartate Aminotransferase 12 U/L (13-40); BUN/Creatinine Ratio 11.8 (10.0-20.0); Bilirubin, Total 0.9 mg/dL (0.2-1.0); Blood Urea Nitrogen 24 mg/dL (9-23); Calcium 9.6 mg/dL (8.7-10.4); Carbon Dioxide 27 mmol/L (20-31); Chloride 105 mmol/L (98-107); Glucose 91 mg/dL (74-106); Magnesium 2.6 mg/dL (1.6-2.6); Potassium 3.8 mmol/L (3.5-5.1); Sodium 140 mmol/L (136-145)
[2024-03-23 06:57] LABS: Total Protein 7.4 g/dL (5.7-8.2)
[2024-03-23] MEDS: ASPirin 81 mg TAB PO SCH (08:21)
[2024-03-23] MEDS: FUROSEMIDE 20 MG TAB PO ONE (18:25)
[2024-03-23] MEDS ORDERED: CLOP75TA70 PO (19:33)
[2024-03-23] MEDS ORDERED: ASPI81TA28 PO (19:33)
[2024-03-23] MEDS ORDERED: AMIO200T33 PO (19:33)
[2024-03-23] MEDS ORDERED: MEXI150C15 PO (19:33)
[2024-03-23] MEDS: CLOPIDOGREL BISULFATE 75 MG TAB PO ONE (19:42)
[2024-03-24] VITALS (7 sets, daily range): BP systolic 129–135; BP diastolic 54–74; PULSE 60–63; RESP 16–19; TEMP 36.9; O2SAT 94–95
[2024-03-24 06:50] LABS: Basophils # (auto) 0 10 ^3/uL (0-0.2); Basophils % (auto) 0.5 % (0.0-2.0); Eosinophils # (auto) 0.1 10 ^3/uL (0-0.8); Eosinophils % (auto) 1.9 % (0.0-7.0); Hematocrit 40.4 % (41.0-53.0); Hemoglobin 13.8 g/dL (13.5-17.5); Lymphocytes # (auto) 0.9 10 ^3/uL (0.4-5.4); Mean Corpuscular Hemoglobin 30.8 pg (28.0-32.0); Mean Corpuscular Hgb Conc. 34.2 g/dL (32.0-36.0); Mean Corpuscular Volume 90.1 fL (80.0-100.0); Monocytes # (auto) 0.7 10 ^3/uL (0-1.3); Monocytes % (auto) 9.9 % (0.0-12.0); Neutrophils % (auto) 74.7 % (37.0-80.0); Nucleated Red Blood Cells % 0.1 %; Platelet Count (auto) 202 10^3/uL (140-450); Red Blood Cells 4.48 10^6/uL (4.5-5.90); Red Cell Distribution Width 15.5 % (11.8-14.3); White Blood Cell 6.7 10^3/uL (4.4-10.8)
[2024-03-24 06:57] LABS: Alanine Aminotransferase 11 U/L (7-40); Alkaline Phosphatase 77 U/L (46-116); Anion Gap 8 (5-15); Aspartate Aminotransferase 10 U/L (13-40); BUN/Creatinine Ratio 11.5 (10.0-20.0); Bilirubin, Total 0.8 mg/dL (0.2-1.0); Blood Urea Nitrogen 27 mg/dL (9-23); Calcium 9.9 mg/dL (8.7-10.4); Carbon Dioxide 28 mmol/L (20-31); Chloride 107 mmol/L (98-107); Glucose 92 mg/dL (74-106); Magnesium 2.6 mg/dL (1.6-2.6); Potassium 4.1 mmol/L (3.5-5.1); Sodium 143 mmol/L (136-145)
[2024-03-24] MEDS: CLOPIDOGREL BISULFATE 75 MG TAB PO SCH (09:40)
[2024-03-24] MEDS: FUROSEMIDE 20 MG TAB PO SCH (09:41)
== END 2024-03-24 10:30 | disposition home or self-care (01) | DRG 321 ==
LOC: ER 08:57 → EDBD 08:57 → TELE 13:54 → DOU IN ICU 03-22 15:11 → TELE-E-ADS 03-23 22:21 → TELE-EAST 03-23 22:30
PROVIDERS: ADMIT Hospitalist; ATTEND Hospitalist
PROC: 027034Z Dilation of Coronary Artery, One Artery with Drug-eluting Intraluminal Device, Percutaneous Approach (ICD-10-PCS; principal; 2024-03-22)
PROC: B2111ZZ Fluoroscopy of Multiple Coronary Arteries using Low Osmolar Contrast (ICD-10-PCS; 2024-03-22)
DX: T82.198A Other mechanical complication of other cardiac electronic device, initial encounter (principal); I21.4 Non-ST elevation (NSTEMI) myocardial infarction; I50.33 Acute on chronic diastolic (congestive) heart failure; N17.0 Acute kidney failure with tubular necrosis; I13.0 Hypertensive heart and chronic kidney disease with heart failure and stage 1 through stage 4 chronic kidney disease, or unspecified chronic kidney disease; I47.20 Ventricular tachycardia, unspecified; R57.9 Shock, unspecified; I25.5 Ischemic cardiomyopathy; I25.10 Atherosclerotic heart disease of native coronary artery without angina pectoris; N18.9 Chronic kidney disease, unspecified; E11.22 Type 2 diabetes mellitus with diabetic chronic kidney disease; J44.89 Other specified chronic obstructive pulmonary disease; N40.0 Benign prostatic hyperplasia without lower urinary tract symptoms; Z80.8 Family history of malignant neoplasm of other organs or systems; Z82.49 Family history of ischemic heart disease and other diseases of the circulatory system; Z95.810 Presence of automatic (implantable) cardiac defibrillator
CPT/HCPCS: 36415; 71045; 80053; 80061; 80307; 81001; 83036; 83735; 83880; 84443; 84484; 85025; 85610; 85730; 87426; 87804; 92941; 93005; 93454; 96365; 96372; 97163; 99152; 99291; C1887; G0378; J2250

== ENCOUNTER 2025-03-10 08:58 | Day surgery (SDC) | payer OTHER, MEDICARE ==
[~2025-03-10] VITALS: Ht 182.9 cm; Wt 80.7 kg
[2025-03-10] VITALS (7 sets, daily range): BP systolic 160–181; BP diastolic 83–91; PULSE 60; RESP 12–16; O2SAT 98–99
[~2025-03-10 08:58] MED LIST changes: +AMIO200T33 PO; +ASPI81TA28 PO; +CARV6.2517 PO; -CARV6.2551 PO; +CLOP75TA70 PO; +COLCPOW2 PO; -EMPA1TAB PO; +GABA-339 PO; +POTA-36 PO; -SACU1TAB PO; -TAMS-35 PO; +TAMS0.4C39 PO
[2025-03-10] MEDS: IODIXANOL 320MG/ML 100ML BTL IV ONE (12:03)
[2025-03-10] MEDS: HEPARIN IN NS 1000Units/500mL 1,500 ML ONE (12:03)
[2025-03-10] MEDS: ANGIOMAX 250 MG VIAL IV ONE (12:38)
[2025-03-10] MEDS: HEPARIN SODIUM (PORCINE) 5000 UNITS/ML 1ML VIAL ONE (12:38)
[2025-03-10] MEDS: LIDOCAINE 2%HCL (LOCAL ANESTH.) INJ 20ML MDV ONE (12:39)
[2025-03-10] MEDS: VERAPAMIL 2.5MG/ML INJ 2ML VIAL IV ONE (12:39)
[2025-03-10] MEDS: MIDAZOLAM HCL 2MG/2ML 2ml VIAL (1mg/ml) ONE (12:39)
[2025-03-10] MEDS: SODIUM CHL 0.9% 0 ML ONE (12:39)
[2025-03-10] MEDS: fentaNYL CITRATE 100 MCG/2 ML VL ONE (12:39)
[2025-03-10] MEDS: FAMOTIDINE (10MG/ML) 2ML VL IV ONE (12:49)
[2025-03-10] MEDS: methylPREDNISolone SOD SUCC 125 MG/2 ML VL ONE (12:49)
[2025-03-10] MEDS: diphenhdrAMINE HCL 50 MG/1 ML VL ONE (12:49)
[2025-03-10] MEDS: hydrALAZINE HCL 20 MG/ML VL ONE (13:52)
--- NOTE | 2025-03-10 14:15 | DVHOP2 ---
Operative Report - 2 Report Details Date: 03/10/25 Preop Diagnosis: AORTIC STENOSIS CAD Postop Diagnosis: MILD CORONARY ARTERY DISEASE. MILD AORTIC STENOSIS. Surgeon: Sherry Gonzalez MD Anesthesiologist: CONSCIOUS SEDATION Anesthesia: Mac, Local Consent: The patient was informed of the risks and benefits of the procedure. These i nclude but are not limited to complications of anesthesia, postoperative infection, incomplete relief of symptoms, recurrence of symptoms, damage to blood vessels, nerves and tendons, deep venous thrombosis, pulmonary embolism and possible need for repeat surgery in the future. Complications: NO COMPLICATIONS Findings: MILD CAD. MILD AORTIC STENOSIS Indications for Surgery: ABNORMAL ECHOCARDIOGRAM SUGGESTING SEVERE CAD. Name of Procedure Performed RIGHT AND LEFT HEART CATHETERIZATION. BILATERAL CINE CORONARY ANGIOGRAPHY. LEFT VENTRICULOGRAPHY. FRACTIONAL FLOW RESERVE EVALUATION OF PDA Procedure Details Procedure Details: Prior local anesthesia with 2% lidocaine to the right wrist and full informed consent obtained the patient was prepped and draped in the usual fashion followed by placement of a six Occitan sheath into the radial artery. With the help of ultrasound guidance and fluoroscopic guidance we placed a femoral vein venous sheath also six Occitan in size to facilitate the performance of a right heart catheterization. A Pioneer-Hector catheter was then inserted into the femoral sheath and advanced into the right atrium right ventricle pulmonary artery and capillary wedge pressure positions. Cardiac outputs were determined by the thermodilution technique in triplicate. O2 saturations were not obtained. Through the arterial sheath a multipurpose catheter was advanced into the left ventricle and with an exchange wire we used a Bedford catheter to measure aorta and LV simultaneously. We then performed angiographic evaluation of both right and left coronary arteries. Ventriculography was not performed. Hemodynamics: Right atrial pressure was six. Right ventricular pressure was 60/6. Pulmonary artery pressure was 67 over 27 with a mean of 40. Left ve ntricular pressure was 184 over 20 arterial pressure was 183/86 there was a 10- 12 mm gradient across the aortic valve on pullback. Capillary wedge pressure was approximately 14 to 18. There was no significant change or difference between capillary wedge pressure and LV end-diastolic pressure. Cardiac output was approximately 2.27 with an index of 1.61. Aortic valve area was 1.1-1.2 cm2 consistent with mild aortic sclerosis/stenosis Ventriculography was not performed Coronary anatomy: The RCA is a large vessel it is normal in its proximal mid and distal segments. The PDA at its origin has what appears to be 40-50% stenosis and by FFR it measured 8.88 consistent with noncritical disease. The posterolateral branches are normal. Left main is large and normal. Left anterior descending is a large vessel it is normal in its proximal mid and distal segments. The PDA and posterolateral branches are normal. Impression: Elevated left ventricular end-diastolic pressure rest. Pulmonary hypertension. Mild aortic stenosis. Mild coronary artery disease. Recommendations: Continue medical therapy. Risk factor modification to contin ue. Condition Good Disposition Home Date of Service: Mar 10, 2025 Billing Provider: SHERRY GONZALEZ Sr., MD Cardiology Common Codes: 37661-HCHXCRT INP/OBS CARE (High) Cardiology Procedure Codes: 67300-OWPI HEART CATH W/INTRA INJ, 62509-R/R & L HE ART CATH FOR LVG, 93590-ENO & PLCMT OF FLOW DIR CATH SHERRY GONZALEZ Sr., MD Mar 10, 2025 14:15
--- NOTE | 2025-03-10 15:56 | DVHOP2 ---
Operative Report - 2 Report Details Date: 03/10/25 Preop Diagnosis: AORTIC STENOSIS CAD Postop Diagnosis: MILD CORONARY ARTERY DISEASE. MILD AORTIC STENOSIS. Surgeon: Sherry Gonzalez MD Anesthesiologist: CONSCIOUS SEDATION Anesthesia: Mac, Local Consent: The patient was informed of the risks and benefits of the procedure. These i nclude but are not limited to complications of anesthesia, postoperative infection, incomplete relief of symptoms, recurrence of symptoms, damage to blood vessels, nerves and tendons, deep venous thrombosis, pulmonary embolism and possible need for repeat surgery in the future. Complications: NO COMPLICATIONS Name of Procedure Performed RIGHT AND LEFT HEART CATHETERIZATION. BILATERAL CINE CORONARY ANGIOGRAPHY. LEFT VENTRICULOGRAPHY. FRACTIONAL FLOW RESERVE EVALUATION OF PDA Procedure Details Procedure Details: Prior local anesthesia with 2% lidocaine to the right wrist and full informed consent obtained the patient was prepped and draped in the usual fashion followed by placement of a six Estonian sheath into the radial artery. With the help of ultrasound guidance and fluoroscopic guidance we placed a femoral vein venous sheath also six Estonian in size to facilitate the performance of a right heart catheterization. A [place]-Hector catheter was then inserted into the femoral sheath and advanced into the right atrium right ventricle pulmonary artery and capillary wedge pressure positions. Cardiac outputs were determined by the thermodilution technique in triplicate. O2 saturations were not obtained. Through the arterial sheath a multipurpose catheter was advanced into the left ventricle and with an exchange wire we used a Bandar catheter to measure aorta and LV simultaneously. We then performed angiographic evaluation of both right and left coronary arteries. Ventriculography was not performed. Hemodynamics: Right atrial pressure was six. Right ventricular pressure was 60/6. Pulmonary artery pressure was 67 over 27 with a mean of 40. Left ventricular pressure was 184 over 20 arterial pressure was 183/86 there was a 10-12 mm gradient across the aortic valve on pullback. Capillary wedge pressure was approximately 14 to 18. There was no significant change or difference between capillary wedge pressure and LV end-diastolic pressure. Cardiac output was approximately 2.27 with an index of 1.61. Aortic valve area was 1.1-1.2 cm2 consistent with mild aortic sclerosis/stenosis Ventriculography was not performed Coronary anatomy: The RCA is a large vessel it is normal in its proximal mid and distal segments. The PDA at its origin has what appears to be 40-50% stenosis and by FFR it measured 8.88 consistent with noncritical disease. The posterolateral branches are normal. Left main is large and normal. Left anterior descending is a large vessel it is normal in its proximal mid and distal segments. The PDA and posterolateral branches are normal. Impression: Elevated left ventricular end-diastolic pressure rest. Pulmonary hypertension. Mild aortic stenosis. Mild coronary artery disease. Recommendations: Continue medical therapy. Risk factor modification to continue. Condition Good Disposition Home Date of Service: Mar 10, 2025 Billing Provider: SHERRY GONZALEZ Sr., MD Cardiology Common Codes: 57484-UKYCXRP INP/OBS CARE (High) Cardiology Procedure Codes: 63685-CFXQ HEART CATH W/INTRA INJ, 51476-C/R & L HEART CATH FOR LVG SHERRY GONZALEZ Sr., MD Mar 10, 2025 15:56
== END 2025-03-10 17:40 | disposition home or self-care (01) ==
LOC: CATH 08:58
PROVIDERS: ATTEND Internal Medicine
DX: I25.10 Atherosclerotic heart disease of native coronary artery without angina pectoris (principal); R93.1 Abnormal findings on diagnostic imaging of heart and coronary circulation; I11.0 Hypertensive heart disease with heart failure; I50.9 Heart failure, unspecified; I42.0 Dilated cardiomyopathy; I27.20 Pulmonary hypertension, unspecified; I35.0 Nonrheumatic aortic (valve) stenosis; J44.9 Chronic obstructive pulmonary disease, unspecified; I70.0 Atherosclerosis of aorta; Z95.5 Presence of coronary angioplasty implant and graft; Z79.899 Other long term (current) drug therapy; Z98.890 Other specified postprocedural states; Z95.810 Presence of automatic (implantable) cardiac defibrillator
CPT/HCPCS: 0523T; 93460; C1769; C1894; J0360; J1200; J1644; J2250; J2919; J3010; J3490; J7030; Q9967; 99152